=== PATIENT | male | born 1950 | race Caucasian/White ===

== ENCOUNTER 2017-04-02 09:06 | Emergency (ER) | payer BC, OTHER ==
--- NOTE | 2017-04-02 10:06 | EDM.PDOC ---
ED HPI GENERAL MEDICAL PROBLEM - General Chief Complaint: Neuro Symptoms/Deficits Stated Complaint: DIZZINESS Time Seen by Provider: 04/02/17 09:50 Source of Information: Reports: Patient History Limitations: Reports: No Limitations - History of Present Illness INITIAL COMMENTS - FREE TEXT/NARRATIVE: 66-year-old male presents with a on symptom complex. He reports that over the last week when he enters a building with shiny floors he finds that he feels off balance and concerned that he cannot walk on the floor for fear of falling. He hasn't fallen recently. He states he doesn't know where this comes from but it seems to be present over the last week. For example he went to the [employer] in [place] twice in the weekend but as soon as he entered the building due to the shiny floors he turned around and walked back out. There is no real signs or symptoms of agoraphobia. He states he feels slightly offkilter off balance at times but no true vertigo. He's never fainted or felt like he was going to pass out. He is concerned that he might have diabetes as his older brother has diabetes and he is markedly overweight. He takes no other medications. He takes a lot of herbal [id number] supplements. Rarely drinks alcohol. Nonsmoker. Onset: Gradual (Over the last week to 10 days.) Onset Date: 03/23/17 Duration: Day(s):, Intermittent Location: Reports: Other (No pain.) Quality: Reports: Other (Feeling of anxiety and off balance feeling when he enters of building with shiny-polished floors.) Improves with: Reports: None Worsens with: Reports: Other Context: Denies: Activity (Symptoms seem to only come on when he enters buildings with polished shiny floors.), Exercise, Lifting, Sick Contact, Trauma , Other Associated Symptoms: Denies: Confusion, Chest Pain, Cough, cough w sputum, Diaphoresis, Fever/Chills, Headaches, Loss of Appetite, Malaise, Nausea/Vomiting , Rash, Seizure, Shortness of Breath, Syncope, Weakness 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.) - Related Data Allergies Allergy/AdvReac Type Severity Reaction Status Date / Time acetaminophen [From Vicodin] Allergy Dizziness Verified 04/02/17 09:21 hydrocodone [From Vicodin] Allergy Dizziness Verified 04/02/17 09:21 Home Meds: Home Meds Ascorbate Calcium [Vitamin C] 500 mg PO DAILY 04/02/17 [History] Ascorbic Acid/Collagen Hydr [Collagen Plus Vit C] 1 cap PO DAILY 04/02/17 [ History] Cinnamon Bark [Cinnamon] 500 mg PO DAILY 04/02/17 [History] Stacie 500 mg PO BID 04/02/17 [History] Gluc HCl/Csa/Karl Hy/Hyalur Ac [Glucosamine Chondroitin] 1 cap PO DAILY [History] Multivitamin with Minerals [Multiple Vitamin] 1 tab PO DAILY 04/02/17 [History] Past Medical History Respiratory History: Reports: Bronchitis, Recurrent Genitourinary History: Reports: Other (See Below) Other Genitourinary History: bladder CA in 2007 Musculoskeletal History: Reports: Arthritis, Back Pain, Chronic, Osteoarthritis , Other (See Below) Other Musculoskeletal History: sciatica Oncologic (Cancer) History: Reports: Bladder Dermatologic History: Reports: Psoriasis - Infectious Disease History Infectious Disease History: Reports: Chicken Pox, Measles, Mumps - Past Surgical History HEENT Surgical History: Reports: Tonsillectomy GI Surgical History: Reports: Cholecystectomy Social & Family History - Tobacco Use Smoking Status *Q: Never Smoker Second Hand Smoke Exposure: No - Caffeine Use Caffeine Use: Reports: Coffee - Recreational Drug Use Recreational Drug Use: No - Living Situation & Occupation Living situation: Reports: Single Occupation: Employed ED ROS GENERAL - Review of Systems Review Of Systems: See Below Constitutional: Denies: Fever, Chills, Malaise, Weakness, Fatigue, Decreased Appetite, Weight Loss HEENT: Reports: No Symptoms Respiratory: Reports: No Symptoms Cardiovascular: Reports: Dyspnea on Exertion. Denies: Chest Pain, Blood Pressure Problem, Claudication, Orthopnea Endocrine: Reports: No Symptoms GI/Abdominal: Reports: No Symptoms : Reports: Other (No nocturia.) Musculoskeletal: Reports: Joint Pain (Right knee pain due to arthritis. He is on a natural anti-inflammatory.) Skin: Reports: No Symptoms Neurological: Reports: Difficulty Walking (Sometimes limping gait due to pain in his right knee.) Psychiatric: Reports: Anxiety (Anxiety about entering buildings with polished shiny floors over the last week to 10 days. Never is happened before.) ED EXAM, DIZZINESS - Physical Exam Exam: See Below Exam Limited By: No Limitations General Appearance: Alert, WD/WN, No Apparent Distress, Anxious (Mildly anxious about current problems.) Eye Exam: Bilateral Eye: Normal Inspection Ears: Normal TMs Throat/Mouth: Normal Inspection, Normal Lips, Normal Teeth, Normal Oropharynx Head Exam: Atraumatic, Normocephalic Neck: Normal Inspection, Supple, Non-Tender, Full Range of Motion. No: Carotid Bruit, Lymphadenopathy (L), Lymphadenopathy (R) Respiratory/Chest: No Respiratory Distress, Lungs Clear, Normal Breath Sounds, No Accessory Muscle Use Cardiovascular: Normal Peripheral Pulses, Regular Rate, Rhythm, No Edema, No Gallop, No Murmur GI/Abdominal: Normal Bowel Sounds, Soft, Non-Tender, No Organomegaly, No Distention Neurological: Alert, Normal Mood/Affect, Normal Dorsiflexion, CN II-XII Intact, Normal Plantar Flexion, Normal Gait, Normal Reflexes, No Motor/Sensory Deficits , Oriented x 3 DTR: 1+: Achilles (R), Achilles (L), 2+: Patella (R), Patella (L) Back Exam: Normal Inspection, Full Range of Motion. No: CVA Tenderness (L), CVA Tenderness (R) Extremities: Normal Inspection, Normal Range of Motion, Non-Tender, No Pedal Edema Psychiatric: Normal Mood, Anxious Skin Exam: Warm, Dry (Mildly anxious.), Intact, Normal Color, No Rash EKG INTERPRETATION EKG Date: 04/02/17 Time: 10:05 Rhythm: Other (Sinus bradycardia) Rate (Beats/Min): 53 Carmel: LAD-Left Carmel Deviation (-27) P-Wave: Present ST-T: Other (Diffuse early repolarization pattern.) QT: Prolonged EKG Interpretation Comments: Abnormal ECG Course - Vital Signs Last Recorded V/S: Last Vital Signs Temp 36.1 C 04/02/17 09:10 Pulse 62 04/02/17 09:10 Resp 12 04/02/17 09:10 BP 148/82 H 04/02/17 09:10 Pulse Ox 99 04/02/17 09:10 Orthostatic Blood Pressure [ 143/99 Standing] Orthostatic Blood Pressure [ 149/78 Sitting] Orthostatic Blood Pressure [ 148/82 Supine] - Orders/Labs/Meds Orders: Active Orders 24 hr Category Date Time Status EKG Documentation Completion [RC] STAT Care 04/02/17 10:03 Active Labs: Laboratory Tests 04/02/17 04/02/17 04/02/17 Range/Units 10:25 10:25 10:25 WBC 7.24 (4.23-9.07) K/mm3 RBC 5.00 (4.63-6.08) M/mm3 Hgb 15.6 (13.7-17.5) gm/L Hct 45.9 (40.1-51.0) % MCV 91.8 (79.0-92.2) fl MCH 31.2 (25.7-32.2) pg MCHC 34.0 (32.2-35.5) g/dl RDW Std Deviation 46.4 H (35.1-43.9) fL Plt Count 183 (163-337) K/mm3 MPV 11.2 (9.4-12.3) fl Neutrophils % (Manual) 71 H (40-60) % Band Neutrophils % 1 (0-10) % Lymphocytes % (Manual) 27 (20-40) % Atypical Lymphs % 0 % Monocytes % (Manual) 1 L (2-10) % Eosinophils % (Manual) 0 L (0.8-7.0) % Basophils % (Manual) 0 L (0.2-1.2) Platelet Estimate Adequate RBC Morph Comment Normal Sodium 141 (136-145) mEq/L Potassium 4.1 (3.5-5.1) mEq/L Chloride 105 (98-107) mEq/L Carbon Dioxide 27 (21-32) mEq/L Anion Gap 13.1 (5-15) BUN 17 (7-18) mg/dL Creatinine 0.7 (0.7-1.3) mg/dL Est Cr Clr Drug Dosing 117.02 mL/min Estimated GFR (MDRD) > 60 (>60) mL/min BUN/Creatinine Ratio 24.3 H (14-18) Glucose 133 H (80-115) mg/dL Hemoglobin A1c 6.00 (4.50-6.20) % Calcium 9.1 (8.5-10.1) mg/dL Magnesium 1.9 (1.8-2.4) mg/dl Total Bilirubin 0.6 (0.2-1.0) mg/dL AST 30 (15-37) U/L ALT 46 (16-63) U/L Alkaline Phosphatase 72 (46-116) U/L Total Protein 7.0 (6.4-8.2) g/dl Albumin 3.7 (3.4-5.0) g/dl Globulin 3.3 gm/dL Albumin/Globulin Ratio 1.1 (1-2) TSH 3rd Generation 2.601 (0.358-3.74) uIU/mL - Radiology Interpretation Free Text/Narrative:: 66-year-old male presents to the ED with a rather on history. He indicates over the last week to 10 days she's developed problems entering the building with shiny polished floors. It makes him feel offkilter off balance and fear of falling is prevalent. He turns around and walks out of these buildings usually. He never had this symptom complex before. He can't explain it any other way. But it does create significant anxiety for him. He has major concern is that he may be diabetic as he is obviously overweight. His oldest brother is diabetic. Only previous surgery is a cholecystectomy. Takes all meds [id number]. I have some concerns of one of these medications may be causing some of his symptom complex. I will have routine labs and ECG performed including a TSH and a glycosylated protein as he just ate breakfast his blood sugars likely to be elevated. Will not start an IV or give him any medications at this time. - Re-Assessments/Exams Free Text/Narrative Re-Assessment/Exam: 04/02/17 10:14 ECG shows sinus rhythm at 53/m I sinus bradycardia. There is an incomplete right bundle branch block pattern with a diffuse early repolarization pattern. He has a left axis deviation of -27. QT is mildly prolonged making this a borderline to abnormal ECG. 04/02/17 11:19 labs are back and reveal a normal white count at 7.24 with 71% neutrophils and 1% band cells. Hemoglobin is 15.6 hematocrit of 45.9 platelets 183,000. Sodium 141 potassium 4.1 chloride 15 bicarbonate 27 and a gap is 13.1 BUN is 17 glucose 133 choledochocele protein is 6.0 calcium 9.1 magnesium 1.9 TSH 2.6. Therefore nothing metabolically could account for his current symptoms. I have some concerns about the [id number] medications he is taking as they may be causing his symptoms. Departure - Departure Time of Disposition: 11:32 Disposition: Home, Self-Care 01 Condition: Good Clinical Impression: Anxiety reaction - Discharge Information Referrals: Oxana Glass DO [Primary Care Provider] - Forms: ED Department Discharge Additional Instructions: Evaluation the emergency room today in regards to a quad symptoms of not being able to walk into a building that has shiny polished floors for the last 10 days. Provokes anxiety and make shoe turnaround leave the building. You had a complete metabolic workup will in the ED as you had some concerns of possible underlying diabetes. 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 All of the other lab tests also proved to be completely normal. I therefore have some concerns about the [id number] medications that you're taking as possible culprits and causing your current symptoms since they are new over the last 10 days. As we discussed it is probably worthwhile stopping all of the supplements in case one of them is the culprit and just taking a multivitamin once daily for the next 2 weeks and see if symptoms do not resolve. If they don't resolve or in fact worsen you should be seen again. - My Orders Last 24 Hours: My Active Orders 04/02/17 10:03 EKG Documentation Completion [RC] STAT - Assessment/Plan Last 24 Hours: My Active Orders 04/02/17 10:03 EKG Documentation Completion [RC] STAT
== END 2017-04-02 11:49 | disposition home or self-care (01) ==
LOC: JD.ED 09:06
DX: F41.1 Generalized anxiety disorder (principal); L40.9 Psoriasis, unspecified; M19.90 Unspecified osteoarthritis, unspecified site; Z90.49 Acquired absence of other specified parts of digestive tract; Z98.890 Other specified postprocedural states; Z85.51 Personal history of malignant neoplasm of bladder; Z88.5 Allergy status to narcotic agent; Z88.6 Allergy status to analgesic agent
CPT/HCPCS: 36415; 80053; 83036; 83735; 84443; 85025; 93005; 99283; 99284-25